=== PATIENT | female | born 2000 | race Hispanic/Latino ===

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

== ENCOUNTER 2022-06-05 18:51 | Emergency (ER) | payer OTHER | END 2022-06-05 19:21 | disposition home or self-care (01) | LOC: ERS 18:51 | DX: B35.4 Tinea corporis (principal) | CPT/HCPCS: 99282 ==